=== PATIENT | male | born 1975 | race Caucasian/White ===

== ENCOUNTER 2017-05-29 07:55 | Day surgery (SDC) | payer BC ==
[2017-05-29 09:22] LABS: ADD MAN DIFF? NO
[2017-05-29 09:26] LABS: BASOPHILS % 0.6 % (0.0-2.0); EOSINOPHILS # 0.1 10^3/ul (0.0-0.5); EOSINOPHILS % 1.2 % (0.0-7.0); HEMATOCRIT 38.8 % (42.0-52.0); HEMOGLOBIN 13.6 g/dl (14.0-18.0); LYMPHOCYTES # 2.2 10^3/ul (0.8-2.9); LYMPHOCYTES % 45.2 % (15.0-51.0); MEAN CORPUSCULAR HGB CONC 35.1 g/dl (32.0-37.0); MEAN CORPUSCULAR VOLUME 82.7 fl (82.0-101.0); MONOCYTE # 0.2 10^3/ul (0.3-0.9); NEUTROPHIL # 2.3 10^3/ul (1.6-7.5); NEUTROPHILS % 47.8 % (39.0-77.0); PLATELET COUNT 316 10^3/UL (140-415); RED BLOOD COUNT 4.69 10^6/ul (4.70-6.10); RED CELL DISTRIBUTION WIDTH 13.2 % (11.5-14.5)
[2017-05-29 09:26] LABS: WHITE BLOOD COUNT 4.8 10^3/ul (4.8-10.8)
[2017-05-29 09:47] LABS: ALANINE AMINOTRANSFERASE 38 IU/L (13-69); ALBUMIN 4.5 g/dl (3.3-4.9); ALBUMIN/GLOBULIN RATIO 1.55; ALKALINE PHOSPHATASE 74 IU/L (42-121); ANION GAP 14 (8-16); ASPARTATE AMINO TRANSFERASE 28 IU/L (15-46); BILIRUBIN,INDIRECT 0.9 mg/dl (0-1.1); BILIRUBIN,TOTAL 0.9 mg/dl (0.2-1.3); CARBON DIOXIDE 23 mmol/L (21-31); CHLORIDE 108 mmol/L (97-110); GLUCOSE 102 mg/dl (70-220); TOTAL PROTEIN 7.4 g/dl (6.1-8.1)
[2017-05-29 09:50] LABS: BLOOD UREA NITROGEN 10 mg/dl (7-20); CALCIUM 9.3 mg/dl (8.4-10.2); CREATININE 0.84 mg/dl (0.61-1.24); POTASSIUM 4.1 mmol/L (3.5-5.1); SODIUM 141 mmol/L (135-144)
[2017-05-29 09:55] LABS: INR 0.93; PROTIME 12.6 Sec (11.9-14.9)
[2017-05-29] MEDS ORDERED: FENTAnyl 50 MCG/ML VIAL (10:39)
[2017-05-29] MEDS ORDERED: PROPOFOL 20 ML (10:39)
[2017-05-29] MEDS ORDERED: ROCURONIUM 50 MG INJ (10:39)
[2017-05-29] MEDS ORDERED: MIDAZOLAM 1 MG/ML 2 ML INJ (10:39)
[2017-05-29] MEDS ORDERED: ROPIVACAINE 0.5 % 30 ML VIAL (10:40)
[2017-05-29] MEDS ORDERED: CEFAZOLIN 1 GM INJ (10:59)
[2017-05-29] MEDS ORDERED: MEPERIDINE 25 MG INJ IV (11:00)
[2017-05-29] MEDS ORDERED: EPHEDrine SULFATE 50 MG/5 ML SYG IV (11:00)
[2017-05-29] MEDS ORDERED: OXYCODONE/ACETAMINOPHEN (5/325) TAB PO ×2 (11:00)
[2017-05-29] MEDS ORDERED: LABETALOL HCL 20MG INJ IV (11:00)
[2017-05-29] MEDS ORDERED: hydrALAzine 20 MG INJ IV (11:00)
[2017-05-29] MEDS ORDERED: HYDROmorphONE (0.2 MG/ML) 10ML SYG IV ×3 (11:00)
[2017-05-29] MEDS ORDERED: METOCLOPRAMIDE 10 MG INJ IV (11:00)
[2017-05-29] MEDS ORDERED: ONDANSETRON 4 MG INJ IV (11:00)
[2017-05-29] MEDS ORDERED: DIPHENHYDRAMINE 50 MG INJ IV (11:00)
[2017-05-29] MEDS ORDERED: FENTAnyl 50 MCG/ML VIAL IV ×3 (11:00)
[2017-05-29] MEDS ORDERED: KETOROLAC 30 MG INJ (11:23)
[2017-05-29] MEDS ORDERED: ONDANSETRON 4 MG INJ (11:23)
[2017-05-29] MEDS ORDERED: SUGAMMADEX SODIUM 200 MG/2 ML VIAL IV (11:23)
[2017-05-29] MEDS ORDERED: METOCLOPRAMIDE 10 MG INJ (11:23)
[2017-05-29] MEDS ORDERED: DEXAMETHASONE 4 MG/ML 1 ML INJ (11:23)
[2017-05-29] MEDS: POLYMYXIN/BACITRACIN 1L IRRIG (11:39)
[2017-05-29] MEDS: BUPIVACAINE 0.25% (MPF) 30 ML INJ (11:39)
[2017-05-29] MEDS ORDERED: HYDROCODONE/APAP (5/325) TAB PO (12:00)
== END 2017-05-29 14:00 | disposition home or self-care (01) ==
LOC: SDS 07:55
DX: K40.90 Unilateral inguinal hernia, without obstruction or gangrene, not specified as recurrent (principal)
CPT/HCPCS: 49505; 80053; 85025; 85610; 85730